=== PATIENT | female | born 1965 | race Caucasian/White ===

== ENCOUNTER → 2016-11-01 | Outpatient (CLI) | payer OTHER ==
--- NOTE | 2016-11-01 14:49 | KCIC ---
Examination: Right Lower Extremity Venous Doppler Ultrasound History: Right lower extremity swelling Comparison: None Procedure: Spencer scale, color flow 2D and spectal waveform analysis images are obtained with and without compression in the area of the common femoral vein, superficial femoral vein - femoral vein junction, main femoral vein (superficial femoral vein) and popliteal vein. Veins of the proximal calf are also imaged. Findings: There is normal duplex flow, color flow and compressibility of all visualized vein segments. No evidence of deep venous thrombus is present. Few small right inguinal lymph nodes are identified. Impression: No evidence of DVT in the right lower extremity. Electronically signed by: Vu Watson MD (11/01/2016 2:45 PM)
== END | disposition home or self-care (01) ==
LOC: KCIC US 10:37
DX: M79.89 Other specified soft tissue disorders (principal)
CPT/HCPCS: 93971